=== PATIENT | male | born 1970 | race African-American/Black ===

== ENCOUNTER 2017-01-14 21:30 | Emergency (ER) | payer SELFPAY ==
[2017-01-14 22:04] VITALS: BP 122/80; PULSE 96; TEMP 98.1; BMI 25.7
[2017-01-14] MEDS ORDERED: SODIUM CHLORIDE 1,000 ML IV STA (22:22)
--- NOTE | 2017-01-14 22:22 | PDOC ---
History of Present Illness - General Chief Complaint: Alcohol intoxication Stated Complaint: POSSIBLE ETOH INTOX,FOUND STUMBLING TRAIN STATION Time Seen by Provider: 01/14/17 21:32 - History of Present Illness Initial Comments: This 46-year-old man was brought in by ambulance from [facility]. [facility] had been called to the [facility] station by [facility] police when patient was combative and acting intoxicated in the train. Patient was awake and alert when he arrived in the emergency room, oriented 3. He was cooperative in providing history. Patient admits to drinking although he would not say how much alcohol he had consumed today. He states that he drinks because he has chronic pain ( Especially in his right shoulder, which has dislocated several times). He states that his pain can sometimes be in his whole body. He states that he was told that there was no known reason for his whole body pain. He denies chest pain/shortness of breath/abdominal pain currently. He denies homicidal/suicidal ideation. 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 During weekends, he travels back to [place] where his lives. Past History - Past Medical History Allergies/Adverse Reactions: Allergies Allergy/AdvReac Type Severity Reaction Status Date / Time No Known Allergies Allergy Verified 01/14/17 21:32 Home Medications: Ambulatory Orders NK [No Known Home Medication] 01/14/17 Other medical history: PT DENIES - Psycho/Social/Smoking Cessation Hx Suicidal Ideation: No Smoking History: Unknown if ever smoked Hx Alcohol Use: Yes Review of Systems - Review of Systems Able to Perform ROS?: Yes Comments:: 12 point review of systems is negative except for what is noted in the history of present illness *Physical Exam - Vital Signs Last Vital Signs Temp Pulse Resp BP Pulse Ox 98.1 F 96 H 18 122/80 96 01/14/17 21:30 01/14/17 21:30 01/14/17 21:30 01/14/17 21:30 01/14/17 21:30 - Physical Exam Comments: GENERAL: The patient is awake, alert, and oriented, in no acute distress. Vital signs as noted. HEAD: Normal with no signs of trauma. EYES: Pupils equal, round and reactive to light, extraocular movements intact, sclera anicteric, conjunctiva clear with no pallor. ENT: moist mucous membranes. Ears normal, nares patent, oropharynx clear without exudates. NECK: Normal range of motion, supple without lymphadenopathy, JVD, or masses. LUNGS: Breath sounds equal, clear to auscultation bilaterally. No wheeze/ crackles. HEART: Regular rate and rhythm, normal S1 and S2 without murmur or rub. ABDOMEN: Soft/nontender/nondistended. BS wnl. No guarding or rebound. No palpable masses. No hepatosplenomegaly. EXTREMITIES: Normal range of motion, no edema. No clubbing or cyanosis. No cords, erythema, or tenderness. NEUROLOGICAL: Cranial nerves II through XII grossly intact. Normal speech, normal gait. PSYCH: Normal mood, normal affect. SKIN: Warm, Dry, normal turgor, no rashes or lesions noted. ED Treatment Course - LABORATORY CBC & Chemistry Diagram: 01/14/17 22:20 01/14/17 22:20 Medical Decision Making - Medical Decision Making Because the patient had a history of appearing intoxicated and being combative at the train station, CBC/chemistry profile was evaluated and patient given a liter normal saline. Laboratory evaluation essentially normal except for mild elevation of his white blood cell count. Exam revealed no evidence of acute injury or abnormality. Specifically, right shoulder exam (with patient's no specific complaints centered) showed no tenderness/deformity and patient had full range of motion without pain. The patient asked for pain medication and was given ibuprofen 600 mg by mouth. He states that he has no orthopedist in [place] but will obtain one when he arrives back there. He is been advised to follow-up with the orthopedist for further evaluation of his chronic right shoulder pain. Patient has demonstrated that he can ambulate with a steady gait; he is currently oriented and cooperative. He is exhibiting no hostility. He appears not to be a danger to himself or other people. He will be discharged for follow -up with his doctors in [place] when he returns there. Patient was given full cab fare for transfer back to [facility] [place]. Taxi was called for him and patient was boarded in the cab. From there, he will board the train for his return trip to [place]. *DC/Admit/Observation/Transfer Diagnosis at time of Disposition: Chronic right shoulder pain, History of alcohol use - Discharge Dispostion Disposition: HOME Condition at time of disposition: Stable - Patient Instructions Printed Discharge Instructions: DI for Alcohol Abuse, DI for Shoulder Pain Additional Instructions: Motrin/Aleve/Tylenol as needed for pain Avoid excessive alcohol use Follow-up with orthopedist in [place] as discussed
[2017-01-14 22:37] LABS: BASOPHIL 2.7 % (0-2.0); EOSINOPHIL 0.1 % (0-4.5); MCH 30.4 pg (25.7-33.7); MCHC 34.7 g/dl (32.0-35.9); MEAN CELL VOLUME 87.6 fl (80-96); MEAN PLT VOLUME 8.1 fl (7.5-11.1); NEUTROPHILS 79.1 % (42.8-82.8); PLATELET COUNT 229 K/MM3 (134-434); WHITE BLOOD COUNT 11.9 K/mm3 (4.0-10.8)
[2017-01-14 22:48] LABS: ALBUMIN 4.5 g/dl (3.5-5.0); ALK PHOS 57 U/L (32-92); ANION GAP 9 (8-16); BILIRUBIN,TOTAL 0.4 mg/dl (0.2-1.0); CALCIUM 9.6 mg/dl (8.4-10.2); CO2 21 mmol/L (22-28); CREATININE 1.1 mg/dl (0.6-1.3); GLUCOSE,RANDOM 96 mg/dl (74-106); SGOT/AST 21 U/L (10-42); SGPT/ALT 25 U/L (10-40); TOT PROT 7.9 g/dl (6.4-8.3)
[2017-01-15] MEDS ORDERED: IBUPROFEN 600 MG TABLET (FP) PO ONE ×2 (00:16→00:18)
[2017-01-15] MEDS ORDERED: SODIUM CHLORIDE 1,000 ML IV STA (00:18)
== END 2017-01-15 00:53 | disposition home or self-care (01) ==
LOC: FER 21:30
PROC: 3E0337Z Introduction of Electrolytic and Water Balance Substance into Peripheral Vein, Percutaneous Approach (ICD-10-PCS; principal; 2017-01-14)
DX: F10.99 Alcohol use, unspecified with unspecified alcohol-induced disorder (principal); M25.511 Pain in right shoulder
CPT/HCPCS: 36415; 80053; 85025; 99283-25